=== PATIENT | female | born 1945 | race Caucasian/White ===

== ENCOUNTER 2022-08-26 23:26 | Emergency (ER) | payer MEDICARE, OTHER ==
[~2022-08-26] VITALS: Ht 144.8 cm; Wt 59.0 kg
[2022-08-26 23:48] VITALS: BP 134/68
--- NOTE | 2022-08-26 23:52 | NUR ---
PATIENT AND HER DAUHTER REFUSE TO SEE A PHYSICIAN AFTER TRIAGE. DAUGHTER STATED "I WILL BRING HER BACK IF ANYTHING HAPPENS". RISKS VS. BENEFITS EXPLAIE TO THE PT AND HER DAUGHTER WITH UNDERSTANDIG.
== END 2022-08-26 23:54 | disposition left against medical advice (07) ==
LOC: ER 23:32
DX: Z53.21 Procedure and treatment not carried out due to patient leaving prior to being seen by health care provider (principal)